=== PATIENT | male | born 1995 | race Hispanic/Latino ===

== ENCOUNTER 2018-11-07 21:45 | Emergency (ER) | payer OTHER ==
[~2018-11-07] VITALS: Ht 162.6 cm; Wt 77.2 kg
[~2018-11-07 21:45] MED LIST: ALBENZA200 MG PO
[2018-11-07] MEDS ORDERED: TRAMADOL HCL50 MG PO (22:48)
[2018-11-07] MEDS ORDERED: VOLTAREN - GENE75 MG PO (22:48)
[2018-11-07 23:00] VITALS: BP 155/86
== END 2018-11-07 23:01 | disposition home or self-care (01) | DRG 563 ==
LOC: ED 21:45
DX: S39.012A Strain of muscle, fascia and tendon of lower back, initial encounter (principal); V49.40XA Driver injured in collision with unspecified motor vehicles in traffic accident, initial encounter